=== PATIENT | female | born 1985 | race Two or more races ===

== ENCOUNTER 2021-09-25 10:07 | Emergency (ER) | payer SELFPAY ==
[2021-09-25 10:17] VITALS: BP 95/64; PULSE 73; RESP 17; TEMP 98.8; BMI 26.2
[2021-09-25] MEDS ORDERED: RABIES IMMUNE GLOBULIN 300 UNITS/1 ML VIAL IM ONE (12:07)
[2021-09-25] MEDS ORDERED: DIPHTH,PERTUSS(ACELL),TET 0.5 ML DISP.SYRIN IM ONE ×2 (12:07→12:26)
[2021-09-25] MEDS ORDERED: RABIES VACCINE (PCEC)/PF 2.5 UNIT/VIAL IM ONE ×2 (12:07→12:26)
[2021-09-25] MEDS ORDERED: IBUPROFEN 600 MG TABLET (FP) PO ONE ×2 (12:08→12:25)
[2021-09-25] MEDS ORDERED: RABIES IMMUNE GLOBULIN 300 UNITS/1 ML VIAL ONE (12:26)
== END 2021-09-25 13:49 | disposition home or self-care (01) ==
LOC: JERFT 10:07
PROC: 3E0234Z Introduction of Serum, Toxoid and Vaccine into Muscle, Percutaneous Approach (ICD-10-PCS; principal; 2021-09-25)
PROC: 3E023GC Introduction of Other Therapeutic Substance into Muscle, Percutaneous Approach (ICD-10-PCS; principal; 2021-09-25)
DX: B34.9 Viral infection, unspecified (principal); S81.852A Open bite, left lower leg, initial encounter; W54.0XXA Bitten by dog, initial encounter
CPT/HCPCS: 0241U-QW; 90375; 90675; 90715; 99283-25

== ENCOUNTER 2021-09-29 07:42 | Emergency (ER) | payer SELFPAY ==
[2021-09-29] MEDS ORDERED: RABIES VACCINE (PCEC)/PF 2.5 UNIT/VIAL IM ONE ×2 (08:01→08:29)
[2021-09-29 08:10] VITALS: BP 123/64; PULSE 70; RESP 17; TEMP 98.1; BMI 25.4
== END 2021-09-29 08:45 | disposition home or self-care (01) ==
LOC: JERFT 07:42
PROC: 3E0234Z Introduction of Serum, Toxoid and Vaccine into Muscle, Percutaneous Approach (ICD-10-PCS; principal; 2021-09-29)
DX: Z29.14 Encounter for prophylactic rabies immune globulin (principal)
CPT/HCPCS: 90675; 99284-25